=== PATIENT | male | born 1940 | race Caucasian/White ===

== ENCOUNTER 2019-09-28 17:28 | Emergency (ER) | payer OTHER, MEDICARE ==
[~2019-09-28] VITALS: Ht 188 cm; Wt 97.0 kg
[~2019-09-28 17:28] MED LIST: LIDOcaine 1% W/epiNEPHrine 1:200,000 10ml vial ONE
[2019-09-28 17:31] VITALS: BP 120/79
[2019-09-28] MEDS ORDERED: AMOX-422 PO (18:25)
[2019-09-28] MEDS ORDERED: TETanus/Pertussis (Acell)/Diphther VAC/PF (Tdap-Adult) 0.5ml syringe IMVAC ONE (18:25)
== END 2019-09-28 19:00 | disposition home or self-care (01) ==
LOC: ER 17:29
DX: S61.212A Laceration without foreign body of right middle finger without damage to nail, initial encounter (principal); Z79.2 Long term (current) use of antibiotics; W18.39XA Other fall on same level, initial encounter; Y93.89 Activity, other specified; Y92.89 Other specified places as the place of occurrence of the external cause; Y99.8 Other external cause status
CPT/HCPCS: 12001; 73140; 82948; 90471; 90715; 99283; 99284